=== PATIENT | female | born 1985 | race Two or more races ===

== ENCOUNTER 2024-11-21 12:31 | Emergency (ER) | payer OTHER ==
[~2024-11-21] VITALS: Ht 170.2 cm; Wt 62.1 kg
[2024-11-21] MEDS ORDERED: KETOROLAC TROMETHAMINE 30 MG VIAL ONE (14:13)
[2024-11-21] MEDS ORDERED: CIPROFLOXACIN IN 5 % DEXTROSE 400 MG/200 ML PIGGYBAG IV ONE ×3 (14:13→15:22)
[2024-11-21] MEDS ORDERED: METRONIDAZOLE/SODIUM CHLORIDE 500 MG/100 ML PIGGYBACK IV ONE ×2 (14:13→14:15)
[2024-11-21] MEDS ORDERED: ONDANSETRON HCL 2 MG/ML VIAL ONE (14:13)
[2024-11-21] MEDS ORDERED: FAMOTIDINE/PF 20 MG/2 ML VIAL ONE (14:14)
[2024-11-21] MEDS ORDERED: FAMOtidine 10 MG/ML (4ML VIAL) IV ONE (14:15)
[2024-11-21] MEDS ORDERED: KETOROLAC TROMETHAMINE 30 MG VIAL IU ONE (14:15)
[2024-11-21] MEDS ORDERED: ONDANSETRON HCL 2 MG/ML VIAL IV ONE (14:15)
[2024-11-21] MEDS ORDERED: 0.9 % SODIUM CHLORIDE 1,000 ML IV ONE (14:15)
[2024-11-21 15:09] LABS: URINE APPEARANCE Clear; URINE BILIRRUBIN Negative (NEGATIVE); URINE BLOOD Negative; URINE COLOR Yellow; URINE GLUCOSE Negative (NEGATIVE); URINE LEUKOCYTE Negative; URINE NITRATE Negative; URINE PROTEIN Negative (NEGATIVE); URINE UROBILINOGEN 0.2 E.U./dl
[2024-11-21 15:13] LABS: URINE BACTERIA 260.6 uL (0.0-1933); URINE RBC 9.5 uL (0.0-20.8); URINE WBC 15.1 uL (0.0-23.2)
[2024-11-21 15:13] LABS: ALBUMIN 3.9 gm/dL (3.4-5.0); ALKALINE PHOSPHATASE 87 U/L (50-136); ALT/SGPT 20 U/L (12-78); ANION GAP 7 (10.0-20.0); AST/SGOT 36 U/L (15-37); BILIRUBIN TOTAL 0.61 mg/dL (0.3-1.2); BLOOD UREA NITROGEN 7 mg/dL (7-18); BUN CREA RATIO 10 (7.0-25.0); CALCIUM 8.6 mg/dL (8.5-10.1); CARBON DIOXIDE 28 mEq/L (21-32); CHLORIDE 108 mmol/L (98-107); CREATININE SERUM 0.69 mg/dL (0.55-1.02); GFR 94.72; GLOBULINA 3.9 G/DL (2.4-3.5); GLUCOSE FASTING 79 mg/dL (65-100); OSMOLALITY SERUM 274 MOSM/KG (275-295); POTASSIUM 3.75 mEq/L (3.5-5.1); SODIUM 139 mmol/L (136-145); TOTAL PROTEIN 7.8 gm/dL (6.4-8.2)
[2024-11-21] MEDS ORDERED: CHOLESTYRAMINE/ASPARTAME LIGHT 4 G/PKT PACKET PO ONE (15:15)
[2024-11-21 15:22] LABS: URINE KETONE 40 (NEGATIVE)
[2024-11-21 15:46] LABS: HCG QUANTITATIVE < 1 mUI/mL (1-3)
[2024-11-21 16:05] LABS: HEMATOCRIT 43.6 % (36.0-45.00); HEMOGLOBIN 14.5 g/dL (12.0-15.00); MEAN CELL VOLUME 86.8 fL (80.00-100.00); MEAN CORPUSCULAR HEMOGLOBIN 28.9 pg (27.00-32.0); MEAN CORPUSCULAR HGB CONC 33.3 g/dl (32.0-36.0); PLATELET COUNT 180 K/uL (150-450); RED BLOOD COUNT 5.03 M/uL (4.00-6.00); RED CELL DISTRIBUTION WIDTH 12.9 % (11.5-14.5)
[2024-11-21] MEDS ORDERED: PROBIOTIC1 EAC2 PO (16:14)
[2024-11-21] MEDS ORDERED: PEPCID AC20 MG PO (16:14)
[2024-11-21] MEDS ORDERED: QUESTRAN PACKET4 GM PO (16:14)
[2024-11-21] MEDS ORDERED: ZOFRAN8 MG PO (16:14)
[2024-11-21] MEDS ORDERED: DICY20TA PO (16:14)
== END 2024-11-21 17:37 | disposition home or self-care (01) ==
LOC: ER 12:33
PROVIDERS: General Practice
DX: R19.7 Diarrhea, unspecified (principal); Z91.011 Allergy to milk products; K21.9 Gastro-esophageal reflux disease without esophagitis; H40.89 Other specified glaucoma